=== PATIENT | female | born 1955 | race Caucasian/White ===

== ENCOUNTER 2024-06-14 00:53 | Emergency (ER) | payer SELFPAY ==
[~2024-06-14] VITALS: Ht 162.6 cm; Wt 80.0 kg
[2024-06-14 00:56] VITALS: O2SAT 100
[2024-06-14] MEDS ORDERED: ACET-2708 MT (02:39)
[2024-06-14] MEDS: MAGNESIUM/ALUMINUM HYDROXIDE/SIMETHICONE 30ML UDC PO ONE (03:29)
[2024-06-14] MEDS: MAGNESIUM/ALUMINUM HYDROXIDE/SIMETHICONE 30ML UDC PO NR (03:30)
[2024-06-14] MEDS: VISCOUS LIDOCAINE 2% 15 ML UDC PO NR (03:37)
[2024-06-14 04:00] VITALS: BP 123/74; PULSE 84; RESP 18; TEMP 36.72516; O2SAT 100
== END 2024-06-14 04:00 | disposition home or self-care (01) ==
LOC: ER 00:59
DX: R13.10 Dysphagia, unspecified (principal); I10 Essential (primary) hypertension; Z00.00 Encounter for general adult medical examination without abnormal findings
CPT/HCPCS: 70360; 71045; 99284